=== PATIENT | female | born 1965 | race Caucasian/White ===

== ENCOUNTER → 2018-03-27 | Outpatient (CLI) | payer OTHER, SELFPAY | LOC: M OUTALCOH 08:07 | DX: Z13.9 Encounter for screening, unspecified (principal); F10.20 Alcohol dependence, uncomplicated ==

== ENCOUNTER → 2018-04-05 | Outpatient (RCR) | payer OTHER | LOC: M OUTALCOH 10:23 | DX: F10.20 Alcohol dependence, uncomplicated (principal) ==

== ENCOUNTER 2018-04-10 15:25 | Outpatient (RCR) | payer OTHER | END 2018-05-05 | LOC: M OUTALCOH 15:25 | DX: F10.20 Alcohol dependence, uncomplicated (principal) ==

== ENCOUNTER 2018-05-10 09:51 | Emergency (ER) | payer OTHER | END 2018-05-10 10:30 | disposition home or self-care (01) | LOC: M ED 09:51 | DX: J20.8 Acute bronchitis due to other specified organisms (principal); F33.9 Major depressive disorder, recurrent, unspecified; F41.9 Anxiety disorder, unspecified; G43.909 Migraine, unspecified, not intractable, without status migrainosus; Z98.84 Bariatric surgery status; Z79.899 Other long term (current) drug therapy; Z88.1 Allergy status to other antibiotic agents; Z88.2 Allergy status to sulfonamides | CPT/HCPCS: 99282 ==

== ENCOUNTER 2018-05-14 10:25 | Emergency (ER) | payer OTHER ==
[2018-05-14] MEDS: ALBUTEROL SULFATE 2.5 MG/0.5 ML INH NEB SOLN NEB (11:03)
== END 2018-05-14 12:22 | disposition home or self-care (01) ==
LOC: M ED 10:25
DX: J20.9 Acute bronchitis, unspecified (principal); J01.10 Acute frontal sinusitis, unspecified; Z79.899 Other long term (current) drug therapy; Z88.1 Allergy status to other antibiotic agents; Z88.2 Allergy status to sulfonamides
CPT/HCPCS: 71046